=== PATIENT | female | born 1975 | race Two or more races ===

== ENCOUNTER 2020-03-07 16:28 | Outpatient (RCR) | payer OTHER, SELFPAY ==
--- NOTE | 2020-03-16 15:19 | PTOPEVAL ---
Thank you for referring Opal Carroll to [facility].? The patient is scheduled to be seen for therapy?for 2 additional sessions. Please review, sign, date and return this plan of care JONA. I agree with and certify that the following plan of care is medically necessary. Referring Physician Date Admitting Provider: Attending Provider: PHYSICIAN NOT ON STAFF Referring Provider: *PT Outpatient Evaluation Start: 03/07/20 16:44 Freq: Status: Active Protocol: Document 03/07/20 16:44 VIKASH (Rec: 03/07/20 17:51 [email or web address] [id number]) Therapy Assessment Status Assessment Status Assessment Status Evaluation Evaluation Information Problem Diagnosis scapular dyskinesia Onset 02/15/20 Subjective Information Pt. reports that she began Query Text:As Reported By Patient/ having neck and shoulder pain Family several weeks. 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 She reports that her pain is locked on the left side of the neck and into the shoulder blade. She reports that pain was worsened with longer periods at the computer. She reports that her goal is to decrease her pain. Prior Level of Function Activity Level (Last 3 Months) Occupation teacher Hand Dominance Right Activity of Daily Living Ability Independent Indoor/Home Mobility Independent Community Mobility Independent Stairs Ability Independent Functional Cognition (Planning, Shopping Independent , Taking Medications) Cooking Yes Cleaning Yes Laundry Yes Shopping Yes Driving Yes Pain Assessment Pain Scale Pain Scale Used Numeric (1 - 10) Self Report Pain Assessment Neck Reported Pain Level 1 Lowest Pain Intensity 1 Greatest Pain Intensity 2 Pain Aggravating Factors Prolonged Position Pain Score Pain Score 1: Self Report Interventions Used Interventions Used By Clinicians Electrical Stimulation, Exercise,Mobilization,Manual Therapy Techniques Cervical and Lumbar ROM Cervical ROM Cervical Flexion (0-60) 55 Query Text:Active in Degrees Cervical Extension (0-70) 65 Query Text:Active in Degrees*
== END 2020-03-16 09:00 | disposition home or self-care (01) ==
LOC: CHSPT 16:28
DX: G25.89 Other specified extrapyramidal and movement disorders (principal)
CPT/HCPCS: 97110; 97140; 97161

== ENCOUNTER 2020-04-06 12:52 | Outpatient (CLI) | payer OTHER, SELFPAY ==
--- NOTE | ~2020-04-06 | MM_ITS ---
EXAMINATION: MM screening regine BI w riley HISTORY: Screening mammogram TECHNIQUE: Craniocaudal and mediolateral oblique 3-D tomosynthesis images were obtained and synthetic 2-D images were generated. CAD analysis was submitted and interpreted. COMPARISON: 10/03/2016 bilateral digital screening mammogram BREAST PARENCHYMAL COMPOSITION: The breasts are extremely dense, which lowers the sensitivity of mamm ography. FINDINGS: There is no evidence of suspicious mass, calcification, or architectural distortion to sugg est malignancy in either breast. There has been no suspicious interval change. IMPRESSION: 1. No mammographic evidence of malignancy. 2. Recommend routine screening mammography in one year. BI-RADS Category 1: Negative Reviewed, dictated and finalized at location A. ON SORTER
== END 2020-04-06 12:53 | disposition home or self-care (01) ==
LOC: CHSIMG 12:53
PROVIDERS: PCP Family Medicine; Visit Provider Nurse Practitioner Family
DX: Z12.31 Encounter for screening mammogram for malignant neoplasm of breast (principal)
CPT/HCPCS: 77063; 77067

== ENCOUNTER 2020-11-17 08:59 | Outpatient (CLI) | payer OTHER, SELFPAY ==
--- NOTE | ~2020-11-17 | MMUS_ITS ---
EXAMINATION: MM diagnostic regine BI w riley, US breast BI complete HISTORY: Bilateral nipple discharge. TECHNIQUE: Additional 3-D tomosynthesis images of the breasts were performed and synthetic 2-D images were generated. CAD analysis was submitted and interpreted. High resolution complete bilateral breas t ultrasound was performed. COMPARISON: Comparison to multiple prior studies sequentially, with oldest reviewed study dated 10/03. BREAST PARENCHYMAL COMPOSITION: The breasts are extremely dense, which lowers the sensitivity of mamm ography. FINDINGS: MAMMOGRAPHIC FINDINGS: There are no suspicious masses, calcifications or architectural distortion in either breast to sugges t malignancy. ULTRASOUND: Right breast ultrasound: At 2:00 near the nipple there is a 3 mm cyst. At 3:00, 8 cm from the nipple, there is an oval hypoechoic mass without internal vascularity or significant posterior features darek uring 3 mm. There is parallel orientation. At 2:00, 8 cm from the nipple, there is a 9 mm oval hypoec hoic mass with echogenic hilum, circumscribed margins, no posterior features or internal vascularity, most likely benign intramammary lymph node. At 10:00, 10 cm from the nipple there is a 4 mm intramam fidel lymph node. Left breast ultrasound: At 3:00, 8 cm from the nipple there is a 6 mm intramammary lymph node. At 4:0 0, 1 cm from the nipple there is a complicated cyst measuring 6 mm. At 8:00, 8 cm from the nipple, th ere is a likely benign oval hypoechoic mass measuring 4 mm. IMPRESSION: 1. Probable benign right breast mass at 2:00, 8 cm from the nipple. No evidence for malignancy in the left breast. 2. Recommend 6 month follow-up targeted right breast ultrasound BI-RADS category 3, probably benign findings. Reviewed, dictated and finalized at location A. IMPRESSION: 1. Probable benign right breast mass at 2:00, 8 cm from the nipple. No evidence for malignancy in the left breast. 2. Recommend 6 month follow-up targeted right breast ultrasound BI-RADS category 3, probably benign findings.
== END 2020-11-17 09:00 | disposition home or self-care (01) ==
PROVIDERS: PCP Family Medicine; Visit Provider Nurse Practitioner Family
DX: N64.52 Nipple discharge (principal)
CPT/HCPCS: 76641; 77062; 77066; G0279

== ENCOUNTER → 2021-07-26 08:12 | Outpatient (CLI) | payer OTHER, SELFPAY ==
--- NOTE | ~2021-07-26 | US_ITS ---
US breast RT limited DATE: 07/26/2021 08:35 INDICATION: Six-month follow-up of 8:00 mass 2 cm from nipple TECHNIQUE: High-resolution ultrasound imaging and color flow imaging targeted 8:00 2 cm from nipple COMPARISON: 11/17/2020 complete bilateral breast ultrasound 11/17/2020 bilateral diagnostic mammogram FINDINGS: There is a parallel circumscribed hypoechoic relatively uniform echogenicity solid lesion m easuring 3.4 x 12 x 11 mm, without internal vascularity or posterior shadowing. This appears sonograp hically benign and is stable in size since 11/17/2020 (Please note that the 11/17/2020 report indicates 2 :00 lesion 8 cm from nipple, but this was an error; the lesion is at 8:00 2 cm from nipple.). IMPRESSION: BI-RADS Category 2: Benign Recommendation: Routine mammographic screening Reviewed, dictated and finalized at Location [facility]. Reviewed, dictated and finalized at location A.
== END ==
PROVIDERS: PCP Family Medicine; Visit Provider Nurse Practitioner Family
DX: R92.8 Other abnormal and inconclusive findings on diagnostic imaging of breast (principal)
CPT/HCPCS: 76642

== ENCOUNTER 2024-05-21 14:54 | Outpatient (CLI) | payer OTHER, SELFPAY ==
--- NOTE | ~2024-05-21 | MM_ITS ---
EXAMINATION: MM screening regine BI w riley HISTORY: Screening TECHNIQUE: Craniocaudal and mediolateral oblique 3-D tomosynthesis images were obtained and synthetic 2-D images were generated. CAD analysis was submitted and interpreted. COMPARISON: Comparison to multiple prior studies sequentially, with oldest reviewed study dated 10/03. BREAST PARENCHYMAL COMPOSITION: Dense: The breasts are extremely dense, which lowers the sensitivity of mammography. FINDINGS: There is no evidence of suspicious mass, calcification, or architectural distortion to sugg est malignancy in either breast. There has been no suspicious interval change. IMPRESSION: 1. No mammographic evidence of malignancy. 2. Recommend routine screening mammography in one year. BI-RADS Category 1: Negative Reviewed, dictated and finalized at location B. ING CLERK
== END 2024-05-21 14:55 | disposition home or self-care (01) ==
LOC: CHSIMG 14:58
PROVIDERS: PCP Family Medicine; Visit Provider Nurse Practitioner Family
DX: Z12.31 Encounter for screening mammogram for malignant neoplasm of breast (principal)
CPT/HCPCS: 77063; 77067